=== PATIENT | male | born 1980 | race African-American/Black ===

== ENCOUNTER 2017-06-23 18:47 | Emergency (ER) | payer MEDICAID ==
[~2017-06-23] VITALS: Ht 177.8 cm; Wt 121.0 kg
[2017-06-24] MEDS ORDERED: ACETAMINOPHEN WITH CODEINE 300/30MG TABLET PO ONE (02:15)
[2017-06-24 02:36] LABS: BASOPHILS % 1.2 % (0.0-2.0); HEMATOCRIT. 38.6 % (42.0-52.0); LYMPHOCYTES % 27.4 % (20.0-50.0); MEAN CORPUSCULAR VOLUME 83.2 fL (80.0-94.0); MEAN PLATELET VOLUME 7.8 fl (7.4-10.4); MONOCYTES % 8.4 % (2.0-8.0); PLATELET 264 x1000/uL (130-400); RED BLOOD CELL COUNT 4.64 mill/uL (4.7-6.1)
[2017-06-24 02:44] LABS: CHLORIDE 108 mEq/L (98-107); PROTHROMBIN TIME 10.6 sec (9.4-11.6)
[2017-06-24 05:21] VITALS: BP 127/87
== END 2017-06-24 05:22 | disposition home or self-care (01) ==
LOC: ER 21:11
DX: M79.662 Pain in left lower leg (principal); M25.572 Pain in left ankle and joints of left foot; F12.10 Cannabis abuse, uncomplicated
CPT/HCPCS: 36415; 73610; 80048; 85025; 85610; 93005; 93971; 99285